=== PATIENT | male | born 1990 | race African-American/Black ===

== ENCOUNTER 2017-09-15 23:05 | Emergency (ER) | payer SELFPAY ==
[~2017-09-15] VITALS: Ht 185.4 cm; Wt 109.0 kg
[2017-09-16] MEDS ORDERED: IPRATROPIUM BROMIDE (0.02%) 0.5MG/2.5ML NEB HHN STA (01:54)
[2017-09-16] MEDS ORDERED: MAGNESIUM 2 G PREMIX 50 ML IV STA (01:54)
[2017-09-16] MEDS ORDERED: ALBUTEROL (0.083%) 2.5MG/3ML NEB HHN STA (01:54)
[2017-09-16] MEDS ORDERED: METHYLPREDNISOLONE SOD SUCC 125 MG/2 ML VIAL IV STA (01:54)
[2017-09-16 03:42] VITALS: BP 154/77
== END 2017-09-16 05:16 | disposition home or self-care (01) ==
LOC: ER 23:05
DX: J45.901 Unspecified asthma with (acute) exacerbation (principal); F17.200 Nicotine dependence, unspecified, uncomplicated
CPT/HCPCS: 94644; 96365; 96375; 99285; J2930; J3475; J7611; Z7610

== ENCOUNTER 2017-10-22 16:38 | Emergency (ER) | payer SELFPAY ==
[~2017-10-22] VITALS: Ht 185.4 cm; Wt 113.5 kg
[2017-10-22] MEDS ORDERED: albuterol (16:57)
[2017-10-22] MEDS ORDERED: ALBUTEROL (0.083%) 2.5MG/3ML NEB HHN STA (17:37)
[2017-10-22] MEDS ORDERED: PREDNISONE 20MG TABLET PO STA (17:37)
[2017-10-22] MEDS ORDERED: IPRATROPIUM BROMIDE (0.02%) 0.5MG/2.5ML NEB HHN STA (17:37)
[2017-10-22 18:20] VITALS: BP 130/68
== END 2017-10-22 18:34 | disposition home or self-care (01) ==
LOC: ER 18:18
DX: J45.901 Unspecified asthma with (acute) exacerbation (principal); F17.200 Nicotine dependence, unspecified, uncomplicated
CPT/HCPCS: 94640; 99283; J7512; J7611

== ENCOUNTER 2020-07-08 15:17 | Emergency (ER) | payer MEDICAID, OTHER ==
[~2020-07-08] VITALS: Ht 182.9 cm; Wt 125.0 kg
[~2020-07-08 15:17] MED LIST: albuterol
[2020-07-08 18:42] VITALS: BP 144/90
== END 2020-07-08 18:43 | disposition home or self-care (01) ==
LOC: ER 15:17
DX: K04.7 Periapical abscess without sinus (principal); F12.10 Cannabis abuse, uncomplicated; J45.909 Unspecified asthma, uncomplicated
CPT/HCPCS: 99281

== ENCOUNTER 2022-12-29 02:21 | Emergency (ER) | payer MEDICAID, OTHER ==
[~2022-12-29] VITALS: Ht 182.9 cm; Wt 125.0 kg
[2022-12-29 02:42] VITALS: TEMP 98.3
[2022-12-29] MEDS ORDERED: ALBUTEROL (0.083%) 2.5MG/3ML NEB HHN STA (02:59)
[2022-12-29] MEDS ORDERED: IPRATROPIUM BROMIDE (0.02%) 0.5MG/2.5ML NEB HHN STA (02:59)
[2022-12-29] MEDS ORDERED: PREDNISONE 20MG TABLET PO STA (02:59)
[2022-12-29 03:27] VITALS: PULSE 93; RESP 20; O2SAT 97
[2022-12-29] MEDS ORDERED: PRED10TA MT (03:38)
[2022-12-29] MEDS ORDERED: ALBU6.7H3 INH (03:38)
[2022-12-29 04:36] VITALS: BP 136/73; PULSE 91; RESP 17
== END 2022-12-29 04:40 | disposition home or self-care (01) ==
LOC: ER 02:21
DX: J45.901 Unspecified asthma with (acute) exacerbation (principal); F17.200 Nicotine dependence, unspecified, uncomplicated
CPT/HCPCS: 94640; 99285; J7512; Z7610; 99283

== ENCOUNTER 2023-03-06 02:37 | Emergency (ER) | payer OTHER ==
[~2023-03-06] VITALS: Ht 185.4 cm; Wt 118.0 kg
[~2023-03-06 02:37] MED LIST changes: +ALBU6.7H3 INH; +PRED10TA MT
[2023-03-06 03:16] VITALS: BP 133/66; RESP 15; TEMP 97.8; O2SAT 97
[2023-03-06 03:17] VITALS: PULSE 83
[2023-03-06] MEDS ORDERED: IPRATROPIUM BROMIDE (0.02%) 0.5MG/2.5ML NEB HHN NR (06:15)
[2023-03-06] MEDS ORDERED: ALBUTEROL (0.083%) 2.5MG/3ML NEB HHN NR (06:15)
== END 2023-03-06 07:21 | disposition left against medical advice (07) ==
LOC: ER 02:37
DX: Z53.21 Procedure and treatment not carried out due to patient leaving prior to being seen by health care provider (principal)
CPT/HCPCS: 71045; 99281; Z7610